=== PATIENT | male | born 1950 | race Caucasian/White ===

== ENCOUNTER 2018-01-31 12:54 | Emergency (ER) | payer MEDICARE, OTHER, SELFPAY ==
[2018-01-31 12:58] VITALS: BP 132/89; PULSE 76; RESP 18; TEMP 36.2; O2SAT 98
--- NOTE | 2018-01-31 15:11 | ED.UPPEXIN ---
HPI - Extremity Injury (Upper) <June Jiang PA-C - Last Filed: 01/31/18 18:45> General Chief Complaint: Extremity Injury, Upper Stated Complaint: INDEX FINGER LEFT HAND LACERATION Time Seen by Provider: 01/31/18 15:03 Source: patient Mode of arrival: ambulatory Limitations: no limitations History of Present Illness HPI narrative: This right-handed 67-year-old male states that he was holding a knife in his right hand when he slipped, slicing the knife across his left pointer finger. He states it was bleeding quite a bit so he came in here for evaluation. States that he can move it without problems aside from bleeding. Denies weakness or paresthesia. He denies any other injury. It has been 5-10 years since his last tetanus vaccine. Related Data Home Medications Medication Instructions Recorded Confirmed lisinopril 10 mg PO DAILY 01/31/18 01/31/18 simvastatin 40 mg PO DAILY 01/31/18 01/31/18 Allergies Allergy/AdvReac Type Severity Reaction Status Date / Time hydromorphone [From DILAUDID] Allergy Mild itching Unverified 05/25/17 12:04 Review of Systems <June Jiang PA-C - Last Filed: 01/31/18 18:45> Review of Systems All systems reviewed & are unremarkable except as noted in HPI and below Exam <June Jiang PA-C - Last Filed: 01/31/18 18:45> Narrative Exam Narrative: GENERAL APPEARANCE: Patient sitting comfortably, in no distress. LUNGS: Clear to auscultation bilaterally. HEART: Rate and rhythm regular without murmur, normal S1 and S2, no S3 or S4. DERMATOLOGIC: Left posterior pointer finger between the PIP and PIP there is a curvilinear 2.4 cm laceration with 1 to 2 mm gap, 3-4 mm in depth. No visible foreign body NEUROVASCULAR: Left hand fingers sensation is grossly intact, warm and pink with brisk cap refill MUSCULOSKELETAL: Left pointer finger no joint effusion, full range of motion and strength intact against resistance in all [place] Initial Vital Signs Initial Vital Signs: Vital Signs Temperature 97.1 F L 01/31/18 12:58 Pulse Rate 76 01/31/18 12:58 Respiratory Rate 18 01/31/18 12:58 Blood Pressure 132/89 01/31/18 12:58 Pulse Oximetry 98 01/31/18 12:58 <Sarah Sánchez DO - Last Filed: 01/31/18 19:05> Initial Vital Signs Initial Vital Signs: Vital Signs Temperature 97.1 F L 01/31/18 12:58 Pulse Rate 76 01/31/18 12:58 Respiratory Rate 18 01/31/18 12:58 Blood Pressure 132/89 01/31/18 12:58 Pulse Oximetry 98 01/31/18 12:58 Procedures <June Jiang PA-C - Last Filed: 01/31/18 18:45> Laceration Repair Laceration 1: Site: hand (PF) Side (If applicable): left Size (cm): 2.4 Description: linear Depth: simple, single layer Local Anesthetic: lidocaine 1% (digital block) Amount of anesthesia used (mL): 6 Pre-repair: wound explored, irrigated extensively (soaked with surgical soap and scrubbed) and deep structures intact Skin layer closed with: nylon Size (cm): 5-0 Number of sutures: 6 Technique: simple, interrupted Course <June Jiang PA-C - Last Filed: 01/31/18 18:45> Orders Ordered: Discontinued Medications Diphtheria/Tetanus/Acell Pertussis (Adacel) 0.5 ml IM .ONCE ONE Stop: 01/31/18 15:22 Last Admin: 01/31/18 15:22 Dose: 0.5 ml Vital Signs - 8 hr 01/31/18 12:58 01/31/18 16:40 Temperature 97.1 F L Pulse Rate 76 65 Respiratory Rate 18 16 Blood Pressure 132/89 Blood Pressure [Right Arm] 128/91 H Pulse Oximetry 98 95 <Sarah Sánchez DO - Last Filed: 01/31/18 19:05> Orders Ordered: Discontinued Medications Diphtheria/Tetanus/Acell Pertussis (Adacel) 0.5 ml IM .ONCE ONE Stop: 01/31/18 15:22 Last Admin: 01/31/18 15:22 Dose: 0.5 ml Vital Signs - 8 hr 01/31/18 12:58 01/31/18 16:40 Temperature 97.1 F L Pulse Rate 76 65 Respiratory Rate 18 16 Blood Pressure 132/89 Blood Pressure [Right Arm] 128/91 H Pulse Oximetry 98 95 Discharge Plan Departure Patient Disposition: Home Clinical Impression: Laceration of finger Discharge Date/Time: 01/31/18 16:41 Interventions: ED Discharge Assessment Last Done: 01/31/18 16:35 Instructions: DI for Laceration Repair -- Finger Activity Restrictions/Additional Instructions: Please return or see your PCP right away if any signs of infection such as acute swelling, redness, draining pus or fever. Otherwise, please keep your finger in the splint at all times (it is okay to shower off or rinse it quickly and pat dry, but do not immerse in water) to help it heal, and you can have the stitches removed by your PCP in about 1 week. Prescriptions: No Action simvastatin 80 mg tablet 40 mg PO DAILY RF: 0 lisinopril 10 mg tablet 10 mg PO DAILY RF: 0 Referrals: Remi Duncan MD [Non-Staff] - <Sarah Sánchez DO - Last Filed: 01/31/18 19:05> Cosign ED Attending Cosgirmaature Attestation: I was immediately available in the department for consultation. Documentation has been reviewed. I agree with assessment and plan.
[2018-01-31] MEDS: TET,DIPH,PERTUSS(ACELL),VAC/PF 0.5 ML SYRINGE IM (15:22)
[2018-01-31 16:40] VITALS: BP 128/91; PULSE 65; RESP 16; O2SAT 95
== END 2018-01-31 16:41 | disposition home or self-care (01) ==
PROVIDERS: Emergency Provider Internal Medicine
DX: S61.211A Laceration without foreign body of left index finger without damage to nail, initial encounter (principal); W26.0XXA Contact with knife, initial encounter
CPT/HCPCS: 12001; 29130; 90471; 99282; 99283; 90715